=== PATIENT | female | born 1950 | race Caucasian/White ===

== ENCOUNTER 2021-08-20 11:56 | Inpatient (IN) | payer MEDICARE, OTHER ==
[~2021-08-20] VITALS: Ht 160 cm; Wt 76.0 kg
[2021-08-20 13:46] LABS: BASOPHIL 0.2 % (0-2); EOSINOPHIL 0 % (0-7); HCT 41.7 % (37.0-47.0); HGB 13.5 g/dl (12.5-16.0); LYMPHOCYTE 12.2 % (15-48); MCH 30.3 pg (25.0-31.0); MCHC 32.4 g/dL (32.0-36.0); MCV 93.5 fL (78.0-100.0); MONOCYTE 6.8 % (0-12); MPV 10.4 fL (6.0-9.5); NRBC 0; PLT 170 K/uL (150-400); RBC 4.46 M/uL (4.20-5.40); RDW 13.1 % (11.5-14.0); WBC 6.6 K/uL (4.0-10.5)
[2021-08-20 14:20] LABS: BUN/CREAT RATIO (CALC) 13.8 RATIO; CREATININE 0.87 mg/dL (0.51-0.95); POTASSIUM 4.4 mmol/L (3.5-5.1)
[2021-08-20 16:41] LABS: INFLUENZA A NAA NEGATIVE (NEGATIVE)
[2021-08-20 16:53] LABS: CORONAVIRUS 2019 SARS-COV-2 POSITIVE (NEGATIVE)
[2021-08-20] MEDS ORDERED: SYNTHROID75 MCG PO (18:34)
[2021-08-20] MEDS ORDERED: ADVAIR 250-501 EACH INH (18:35)
[2021-08-20] MEDS ORDERED: NEXIUM40 MG PO (18:35)
[2021-08-21 04:04] LABS: BASOPHIL 0 % (0-2); EOSINOPHIL 0 % (0-7); HCT 37.9 % (37.0-47.0); HGB 12.7 g/dl (12.5-16.0); LYMPHOCYTE 12.6 % (15-48); MCH 30.8 pg (25.0-31.0); MCHC 33.5 g/dL (32.0-36.0); MONOCYTE 5.7 % (0-12); MPV 10.4 fL (6.0-9.5); NEUTROPHIL 80.9 % (41-80); NRBC 0; PLT 152 K/uL (150-400); RBC 4.12 M/uL (4.20-5.40); RDW 13.1 % (11.5-14.0); WBC 4.8 K/uL (4.0-10.5)
[2021-08-21 04:38] LABS: ALBUMIN 2.9 g/dL (3.4-5.0); BILIRUBIN - TOTAL 0.4 mg/dL (0.2-1.0); BUN/CREAT RATIO (CALC) 16.7 RATIO; CREATININE 0.78 mg/dL (0.51-0.95); GLOBULIN (CALCULATION) 3.1 g/dL; POTASSIUM 3.9 mmol/L (3.5-5.1)
[2021-08-23 08:25] LABS: BILIRUBIN - TOTAL 0.4 mg/dL (0.2-1.0); BUN/CREAT RATIO (CALC) 25.4 RATIO; CREATININE 0.71 mg/dL (0.51-0.95); POTASSIUM 3.5 mmol/L (3.5-5.1)
[2021-08-23] MEDS ORDERED: ROBITUSSIN W/COD5 ML PO (13:47)
[2021-08-23] MEDS ORDERED: MEDROL 4MG DOSEP4 MG PO (13:47)
--- NOTE | 2021-08-23 13:51 | NUR ---
YESENIA ELDRIDGE RN. PT.HAS NO DISCHARGE NEEDS.
== END 2021-08-23 15:31 | disposition home or self-care (01) | DRG 177 ==
LOC: FER 11:56 → FMS 17:08
PROVIDERS: Internal Medicine; ADMIT Internal Medicine
PROC: XW033E5 Introduction of Remdesivir Anti-infective into Peripheral Vein, Percutaneous Approach, New Technology Group 5 (ICD-10-PCS; principal; 2021-08-20)
PROC: 8E0ZXY6 Isolation (ICD-10-PCS; 2021-08-20)
DX: U07.1 COVID-19 (principal); J12.82 Pneumonia due to coronavirus disease 2019; J96.01 Acute respiratory failure with hypoxia; J45.901 Unspecified asthma with (acute) exacerbation; E78.5 Hyperlipidemia, unspecified; K21.9 Gastro-esophageal reflux disease without esophagitis; E03.9 Hypothyroidism, unspecified; Z96.693 Finger-joint replacement, bilateral; Z96.651 Presence of right artificial knee joint; Z90.710 Acquired absence of both cervix and uterus; Z85.048 Personal history of other malignant neoplasm of rectum, rectosigmoid junction, and anus; Z79.899 Other long term (current) drug therapy; Z98.890 Other specified postprocedural states
CPT/HCPCS: 36415; 36600; 71045; 71275; 80048; 80053; 82728; 82803; 83880; 84145; 84484; 85025; 93005; 94010; 94640; C9399; J1100; J1650; J2405; J2920; J7030; J7050; U0002